=== PATIENT | female | born 1995 | race Caucasian/White ===

== ENCOUNTER 2017-12-24 20:30 | Emergency (ER) | payer BC ==
[2017-12-24] MEDS ORDERED: HYDROcodone/Acetaminophen 5/325 mg Tablet ONE (21:31)
[2017-12-24] MEDS ORDERED: Sulfameth/Trimethoprim DS 800-160mg TAB ONE (21:32)
== END 2017-12-24 21:36 | disposition home or self-care (01) ==
LOC: ERS 20:30
DX: L03.116 Cellulitis of left lower limb (principal)
CPT/HCPCS: 99283